=== PATIENT | male | born 1955 | race Two or more races ===

== ENCOUNTER → 2020-08-02 | Outpatient (CLI) | payer OTHER ==
[~2020-08-02] VITALS: Ht 160 cm; Wt 77.6 kg
[~2020-08-02] MED LIST: ASPIRIN EC81 MG ORAL; GAS RELIEF 8080 MG PO; GLIMEPIRIDE4 MG ORAL; JARDIANCE ORAL; LIPITOR40 MG ORAL; LOSARTAN POTASS50 MG ORAL; METFORMIN HCL500 M1 ORAL
[2020-08-02 14:33] VITALS: BP 139/79
--- NOTE | 2020-08-03 15:44 | Consultation ---
DATE OF CONSULTATION: 08/03/2020 CHIEF COMPLAINT: Abdominal pain, GERD, nausea, vomiting, bloating. PAST MEDICAL HISTORY: 1. GERD. 2. Peptic ulcer disease. 3. Hypertension. 4. Coronary artery disease. 5. Hypercholesteremia. 6. Diabetes. 7. H. pylori infection. PAST SURGICAL HISTORY: Left ear surgery. MEDICATIONS: See medication reconciliation list. FAMILY HISTORY: Mom had coronary artery disease. SOCIAL HISTORY: The patient denies any tobacco, alcohol, or drug abuse. ALLERGIES: No known allergies. REVIEW OF SYSTEMS: Positive for abdominal pain, GERD, nausea, vomiting, and bloating. PHYSICAL EXAMINATION: VITAL SIGNS: Temperature 97.7, blood pressure 139/79, pulse is 89, respirations 20. HEENT: Normocephalic and atraumatic. Sclerae anicteric. NECK: Supple. No evidence of obvious lymphadenopathy. CARDIOVASCULAR: Regular rhythm. Plus S1-S2. LUNGS: Clear to auscultation bilaterally. ABDOMEN: Positive bowel sounds. Soft and nontender. No rebound. No guarding. No peritoneal sign. EXTREMITIES: No cyanosis, no clubbing, no edema. ASSESSMENT AND PLAN: A 65-year-old male with numerous medical problems. Had a colonoscopy in 2011, so needs a followup colonoscopy. Also has chronic GERD symptoms, chronic gas and bloating. The patient was told to take Align 1 tablet p.o. daily. We are going to also schedule him for endoscopy and colonoscopy. Fabrizio Nassar M.D. DR: PACO JOB#: [id number] CC:
== END | disposition home or self-care (01) ==
LOC: PAN 10:22
DX: R10.9 Unspecified abdominal pain (principal); K21.9 Gastro-esophageal reflux disease without esophagitis; R11.2 Nausea with vomiting, unspecified; R14.0 Abdominal distension (gaseous); I11.9 Hypertensive heart disease without heart failure; I25.10 Atherosclerotic heart disease of native coronary artery without angina pectoris; E78.00 Pure hypercholesterolemia, unspecified; E11.9 Type 2 diabetes mellitus without complications; Z87.11 Personal history of peptic ulcer disease